=== PATIENT | female | born 1990 ===

== ENCOUNTER 2016-08-16 03:25 | Emergency (ER) | payer OTHER ==
[2016-08-16 03:29] VITALS: RESP 18; TEMP 98.1; O2SAT 98
[2016-08-16 03:30] VITALS: BMI 27.4
[2016-08-16] MEDS ORDERED: Sodium Chloride 0.9% 1,000 ML IV STA (03:44)
--- NOTE | 2016-08-16 03:46 | ED PDOC ---
Arrival/HPI - General Chief Complaint: Back Pain Time Seen by Provider: 08/16/16 03:43 Historian: Patient - History of Present Illness Narrative History of Present Illness (Text): 08/16/16 03:44 Lo Kraus is a 26 year old female who presents to the Emergency department complaining of left flank pain tonight. Patient states pain radiated to her lower abdomen and notes associated nausea. Patient denies any fever, chills, chest pain, shortness of breath,vomiting, diarrhea, urinary symptoms, neck pain, headache, dizziness, or any other complaints. Time/Duration: Other (tonight) Symptom Course: Unchanged Activities at Onset: Rest, Light Context: Home Past Medical History - Provider Review Nursing Documentation Reviewed: Yes - Past History Past History: Non-Contributing - Infectious Disease Hx of Infectious Diseases: None - Tetanus Immunization Tetanus Immunization: Unknown - Cardiac Hx Cardiac Disorders: No - Pulmonary Hx Respiratory Disorders: No - Neurological Hx Neurological Disorder: No - HEENT Hx HEENT Disorder: No - Renal Hx Renal Disorder: No - Endocrine/Metabolic Hx Endocrine Disorders: No - Hematological/Oncological Hx Blood Disorders: Yes Hx Cancer: Yes (non hodgkin's lymphoma) - Integumentary Hx Dermatological Disorder: No - Musculoskeletal/Rheumatological Hx Musculoskeletal Disorders: No - Gastrointestinal Hx Gastrointestinal Disorders: No - Genitourinary/Gynecological Hx Genitourinary Disorders: Yes Other/Comment: lymphoma 2013, hx chemo - Psychiatric Hx Psychophysiologic Disorder: No Hx Anxiety: No Hx Bipolar Disorder: No Hx Depression: No Hx Emotional Abuse: No Hx Hallucinations: No Hx Panic Disorder: No Hx Post Traumatic Stress Disorder: No Hx Psychosis: No Hx Physical Abuse: No Hx Schizophrenia: No Hx Sexual Abuse: No Hx Substance Use: No - Surgical History Hx Section: Yes (x2) Other/Comment: lymphoma left neck - Anesthesia Hx Anesthesia: Yes Hx Anesthesia Reactions: No Hx Malignant Hyperthermia: No - Suicidal Assessment Feels Threatened In Home Enviroment: No Family/Social History - Physician Review Nursing Documentation Reviewed: Yes Family/Social History: No Known Family HX Smoking Status: Never Smoked Hx Alcohol Use: No Hx Substance Use: No Allergies/Home Meds Allergies/Adverse Reactions: Allergies No Known Allergies Allergy (Verified 08/16/16 03:33) Review of Systems - Physician Review All systems were reviewed & negative as marked: Yes - Review of Systems Constitutional: Normal. absent: Fevers Eyes: Normal ENT: Normal Respiratory: Normal. absent: SOB, Cough Cardiovascular: Normal. absent: Chest Pain Gastrointestinal: Abdominal Pain, Nausea. absent: Diarrhea, Vomiting Genitourinary Female: Normal Musculoskeletal: Back Pain (+left flank pain). absent: Neck Pain Skin: Normal. absent: Rash Neurological: Normal. absent: Headache, Dizziness Endocrine: Normal Hemo/Lymphatic: Normal Psychiatric: Normal Physical Exam Vital Signs Reviewed: Yes Vital Signs Temp Pulse Resp BP Pulse Ox 08/16/16 06:36 71 18 116/69 98 08/16/16 03:28 98.1 F 78 18 127/88 98 Temperature: Afebrile Blood Pressure: Normal Pulse: Regular Respiratory Rate: Normal Appearance: Positive for: Well-Appearing, Non-Toxic, Comfortable Pain Distress: None Mental Status: Positive for: Alert and Oriented X 3 - Systems Exam Head: Present: Atraumatic, Normocephalic Pupils: Present: PERRL Extroacular Muscles: Present: EOMI Conjunctiva: Present: Normal Mouth: Present: Moist Mucous Membranes Neck: Present: Normal Range of Motion Respiratory/Chest: Present: Clear to Auscultation, Good Air Exchange. No: Respiratory Distress, Accessory Muscle Use Cardiovascular: Present: Regular Rate and Rhythm, Normal S1, S2. No: Murmurs Abdomen: Present: Normal Bowel Sounds. No: Tenderness, Distention, Peritoneal Signs Back: Present: CVA Tenderness (Left CVA tenderness) Upper Extremity: Present: Normal Inspection. No: Cyanosis, Edema Lower Extremity: Present: Normal Inspection. No: Edema Neurological: Present: GCS=15, CN II-XII Intact, Speech Normal Skin: Present: Warm, Dry, Normal Color. No: Rashes Psychiatric: Present: Alert, Oriented x 3, Normal Insight, Normal Concentration Medical Decision Making ED Course and Treatment: 08/16/16 03:44 Impression: 26 year old female complaining of left flank pain tonight. Plan: -- CT Abdomen and Pelvis w/o contrast -- Labs -- Urinalysis -- IV fluids -- Zofran -- Toradol -- Reassess and disposition Progress Notes: 08/16/16 05:07 Reviewed radiology, CT Abdomen and Pelvis w/o contrast shows: 1. No CT evidence of urolithiasis. 2. Mild cystitis vs underdistention. Correlate with urinalysis. 3. Probable hydrosalpinx. Consider ultrasound. 4. Incidental/non-acute findings are described above. id-filled tubular structures within adnexal regions, present on previous examination. Small ovarian follicles. Re-evaluation Time: 06:44 Reassessment Condition: Re-examined, Improved - Lab Interpretations Lab Results: 08/16/16 03:40 08/16/16 03:40 Lab Results 08/16/16 03:40: Sodium 137, Potassium 4.2, Chloride 101, Carbon Dioxide 24, Anion Gap 16, BUN 9, Creatinine 0.5, Est GFR ( Amer) > 60, Est GFR (Non- Af Amer) > 60, Random Glucose 124 H, Calcium 9.2, Total Bilirubin 0.7, AST 27, ALT 52, Alkaline Phosphatase 102, Total Protein 8.0, Albumin 4.5, Globulin 3.6, Albumin/Globulin Ratio 1.3 08/16/16 03:40: Urine Color Red, Urine Appearance Cloudy, Urine pH 5.0, Ur Specific [place] 1.020, Urine Protein >=300 H, Urine Glucose (UA) 250 H, Urine Ketones Trace H, Urine Blood Large H, Urine Nitrate Positive H, Urine Bilirubin Small H, Urine Urobilinogen >=8.0, Ur Leukocyte Esterase Moderate H, Urine RBC 5 - 10, Urine WBC 10 - 15, Ur Epithelial Cells 1 - 3, Urine Bacteria Small 08/16/16 03:40: WBC 9.1, RBC 4.64, Hgb 12.8, Hct 37.3, MCV 80.4, MCH 27.6, MCHC 34.3, RDW 13.3, Plt Count 326, MPV 10.4, Gran % 61.5, Lymph % (Auto) 29.0, [place] % (Auto) 6.8 H, Eos % (Auto) 2.5, Baso % (Auto) 0.2, Gran # 5.58, Lymph # 2.6, [place] # 0.6, Eos # 0.2, Baso # 0.02 I have reviewed the lab results: Yes - RAD Interpretation Narrative RAD Interpretations (Text): CT Abdomen and Pelvis w/o contrast shows: Lower thorax: No acute findings. ABDOMEN: Liver: Unremarkable. Gallbladder and bile ducts: No calcified stones. No ductal dilation. Pancreas: Unremarkable. No ductal dilation. Spleen: No splenomegaly. Adrenals: No mass. Kidneys and ureters: No renal calculi. Stomach and bowel: No definite mural thickening. No obstruction. Appendix: Normal caliber. No inflammation. PELVIS: Bladder: Borderline bladder wall thickening, 4-5 mm. Incomplete distention, limiting evaluation. No stones. Reproductive: Flu ABDOMEN and PELVIS: Intraperitoneal space: No significant fluid collection. No free air. Bones/joints: No acute fracture. Soft tissues: Unremarkable. Vasculature: Unremarkable. No abdominal aortic aneurysm. Lymph nodes: Few subcentimeter short axis mesenteric lymph nodes, nonspecific. IMPRESSION: 1. No CT evidence of urolithiasis. 2. Mild cystitis vs underdistention. Correlate with urinalysis. 3. Probable hydrosalpinx. Consider ultrasound. 4. Incidental/non-acute findings are described above. id-filled tubular structures within adnexal regions, present on previous examination. Small ovarian follicles. Radiology Orders: 08/16/16 03:44 ABD & PELVIS W/O PO OR IV CONT [CT] Stat Diver Helper: Radiologist - Medication Orders Current Medication Orders: Sodium Chloride (Sodium Chloride 0.9%) 1,000 mls @ 100 mls/hr IV .Q10H STA Stop: 08/16/16 13:43 Last Admin: 08/16/16 03:55 Dose: 100 mls/hr Discontinued Medications Ceftriaxone Sodium (Rocephin 1 Gram Ivpb) 1 gm in 100 mls @ 200 mls/hr IVPB STAT STA PRN Reason: Protocol Stop: 08/16/16 05:20 Last Admin: 08/16/16 05:07 Dose: 200 mls/hr Ketorolac Tromethamine (Toradol) 30 mg IVP STAT STA Stop: 08/16/16 03:45 Last Admin: 08/16/16 03:56 Dose: 30 mg Ketorolac Tromethamine (Toradol) 30 mg IVP ONCE ONE Stop: 08/16/16 04:51 Last Admin: 08/16/16 05:07 Dose: 30 mg Ondansetron HCl (Zofran Inj) 4 mg IVP STAT STA Stop: 08/16/16 03:45 Last Admin: 08/16/16 03:58 Dose: 4 mg - Scribe Statement The provider has reviewed the documentation as recorded by the Becky Starr All medical record entries made by the Harjitibburt were at my direction and personally dictated by me. I have reviewed the chart and agree that the record accurately reflects my personal performance of the history, physical exam, medical decision making, and the department course for this patient. I have also personally directed, reviewed, and agree with the discharge instructions and disposition. Disposition/Present on Arrival - Present on Arrival Any Indicators Present on Arrival: No History of DVT/PE: No History of Uncontrolled Diabetes: No Urinary Catheter: No History of Decub. Ulcer: No History Surgical Site Infection Following: None - Disposition Have Diagnosis and Disposition been Completed?: Yes Diagnosis: UTI (urinary tract infection) Disposition: HOME/ ROUTINE Disposition Time: 06:45 Condition: GOOD Discharge Instructions (ExitCare): Urinary Tract Infection in Women (ED) Prescriptions: Cephalexin [Keflex] 500 mg PO BID #14 capsule Phenazopyridine [Pyridium] 200 mg PO PC #6 tab Tramadol HCl [Ultram] 50 mg PO QID #6 tab
[2016-08-16 03:53] LABS: ADD MANUAL DIFF? NO
[2016-08-16 04:13] LABS: URINE BILIRUBIN SMALL (NEGATIVE); URINE BLOOD LARGE (NEGATIVE); URINE GLUCOSE (UA) 250 mg/dL (NEGATIVE); URINE KETONE TRACE mg/dL (NEGATIVE); URINE LEUKOCYTE ESTERASE MODERATE Leu/uL (NEGATIVE); URINE PROTEIN >=300 mg/dL (<30 mg/dL); URINE UROBILINOGEN >=8.0 E.U./dL (<1 E.U./dL)
[2016-08-16 04:19] LABS: URINE APPEARANCE CLOUDY (CLEAR); URINE COLOR RED (YELLOW)
[2016-08-16 04:21] LABS: BASO # 0.02 K/mm3 (0.0-2.0); BASO % 0.2 % (0.0-3.0); EOS # 0.2 (0.0-0.7); EOS % 2.5 % (1.5-5.0); GRAN # 5.58 (1.4-6.5); GRAN % 61.5 % (50.0-68.0); HEMATOCRIT 37.3 % (36.0-48.0); LYMPH # 2.6 (1.2-3.4); MEAN CELL VOLUME 80.4 fL (80.0-105.0); MEAN CORPUSCULAR HEMOGLOBIN 27.6 pg (25.0-35.0); MEAN CORPUSCULAR HGB CONC 34.3 g/dl (31.0-37.0); MEAN PLATELET VOLUME 10.4 fl (7.0-11.0); MONO # 0.6 (0.1-0.6); MONO % 6.8 % (1.0-6.0); PLATELET COUNT 326 10^3/uL (120.0-450.0); RED CELL DISTRIBUTION WIDTH 13.3 % (11.5-14.5); URINE BACTERIA SMALL (NEG); WHITE BLOOD COUNT 9.1 10^3/ul (4.5-11.0)
[2016-08-16 04:23] LABS: ALB/GLOB RATIO 1.3 (1.1-1.8); ALKALINE PHOSPHATASE 102 U/L (38-133); ALT/SGPT 52 U/L (7-56); AST/SGOT 27 U/L (15-39); BILIRUBIN,TOTAL 0.7 mg/dL (0.2-1.3); BLOOD UREA NITROGEN 9 mg/dL (7-21); CALCIUM 9.2 mg/dL (8.4-10.5); CARBON DIOXIDE 24 mmol/L (21-33); CHLORIDE 101 mmol/L (98-107); GFR AFRICAN-AMERICAN > 60; GLUCOSE,RANDOM 124 mg/dL (70-110); POTASSIUM 4.2 mmol/L (3.6-5.0); SODIUM 137 mmol/L (132-148)
--- NOTE | 2016-08-16 04:44 | CT ---
EXAM: CT Abdomen and Pelvis Without Intravenous Contrast CLINICAL HISTORY: 26 years old, female; Pain; Abdominal pain; Flank; Left; Additional info: Left flank pain TECHNIQUE: Axial computed tomography images of the abdomen and pelvis without intravenous contrast. This CT exam was performed using one or more of the following dose reduction techniques: automated exposure control, adjustment of the mA and/or kV according to patient size, and/or use of iterative reconstruction technique. Coronal and sagittal reformatted images were created and reviewed. COMPARISON: CT - ABD PELVIS IV CONTRAST ONLY 04/08/2016 7:10:04 PM FINDINGS: Lower thorax: No acute findings. ABDOMEN: Liver: Unremarkable. Gallbladder and bile ducts: No calcified stones. No ductal dilation. Pancreas: Unremarkable. No ductal dilation. Spleen: No splenomegaly. Adrenals: No mass. Kidneys and ureters: No renal calculi. Stomach and bowel: No definite mural thickening. No obstruction. Appendix: Normal caliber. No inflammation. PELVIS: Bladder: Borderline bladder wall thickening, 4-5 mm. Incomplete distention, limiting evaluation. No stones. Reproductive: Fluid-filled tubular structures within adnexal regions, present on previous examination. Small ovarian follicles. ABDOMEN and PELVIS: Intraperitoneal space: No significant fluid collection. No free air. Bones/joints: No acute fracture. Soft tissues: Unremarkable. Vasculature: Unremarkable. No abdominal aortic aneurysm. Lymph nodes: Few subcentimeter short axis mesenteric lymph nodes, nonspecific. IMPRESSION: 1. No CT evidence of urolithiasis. 2. Mild cystitis vs underdistention. Correlate with urinalysis. 3. Probable hydrosalpinx. Consider ultrasound. 4. Incidental/non-acute findings are described above.
[2016-08-16] MEDS ORDERED: cefTRIAXone 1 gm 1 GM/100 ML BAG IVPB STA (04:51)
[2016-08-16 06:38] VITALS: BP 116/69; PULSE 71
== END 2016-08-16 06:52 | disposition home or self-care (01) ==
LOC: ED 03:25
DX: N39.0 Urinary tract infection, site not specified (principal)
CPT/HCPCS: 74176; 80053; 81001; 85025; 87086; 96365; 96375; 99284; J0696; J1885; J2405; J7040

== ENCOUNTER 2016-09-27 15:57 | Observation (INO) | payer OTHER ==
--- NOTE | 2016-09-27 16:10 | ED PDOC ---
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 Productive coughing with phelgm inside her chest, admits difficulty breathing when coughing excessively, admits voice is gone, no night sweat, no dizziness, no change in vision, no headache, no palpitation, no rash, no other medical or psychological complaints. (Ward Garza) Past Medical History - Provider Review Nursing Documentation Reviewed: Yes - Past History Past History: Non-Contributing - Infectious Disease Hx of Infectious Diseases: None - Tetanus Immunization Tetanus Immunization: Unknown - Cardiac Hx Cardiac Disorders: No - Pulmonary Hx Respiratory Disorders: No - Neurological Hx Neurological Disorder: No - HEENT Hx HEENT Disorder: No - Renal Hx Renal Disorder: No - Endocrine/Metabolic Hx Endocrine Disorders: No - Hematological/Oncological Hx Blood Disorders: Yes Hx Cancer: Yes (non hodgkin's lymphoma) - Integumentary Hx Dermatological Disorder: No - Musculoskeletal/Rheumatological Hx Musculoskeletal Disorders: No - Gastrointestinal Hx Gastrointestinal Disorders: No - Genitourinary/Gynecological Hx Genitourinary Disorders: Yes Other/Comment: lymphoma 2013, hx chemo - Psychiatric Hx Psychophysiologic Disorder: No Hx Anxiety: No Hx Bipolar Disorder: No Hx Depression: No Hx Emotional Abuse: No Hx Hallucinations: No Hx Panic Disorder: No Hx Post Traumatic Stress Disorder: No Hx Psychosis: No Hx Physical Abuse: No Hx Schizophrenia: No Hx Sexual Abuse: No Hx Substance Use: No - Surgical History Hx Section: Yes (x2) Other/Comment: lymphoma left neck - Anesthesia Hx Anesthesia: Yes Hx Anesthesia Reactions: No Hx Malignant Hyperthermia: No - Suicidal Assessment Feels Threatened In Home Enviroment: No Family/Social History - Physician Review Nursing Documentation Reviewed: Yes Family/Social History: Unknown Family HX Smoking Status: Never Smoked Hx Alcohol Use: No Hx Substance Use: No Allergies/Home Meds Allergies/Adverse Reactions: Allergies No Known Allergies Allergy (Verified 09/27/16 16:07) Home Medications: Home Meds Medication Instructions Recorded Confirmed No Known Home Med 09/27/16 09/27/16 Review of Systems - Review of Systems Constitutional: absent: Fatigue, Fevers Eyes: absent: Vision Changes ENT: absent: Hearing Changes Respiratory: SOB, Cough, Sputum, Wheezing Cardiovascular: absent: Chest Pain Gastrointestinal: absent: Abdominal Pain, Diarrhea, Nausea, Vomiting Musculoskeletal: absent: Arthralgias, Back Pain, Myalgias Skin: absent: Rash, Pruritis, Skin Lesions, Laceration, Abscess, Ulcer Neurological: absent: Headache, Dizziness, Focal Weakness Psychiatric: absent: Anxiety, Depression, Suicidal Ideation Physical Exam Vital Signs Reviewed: Yes Temperature: Afebrile Blood Pressure: Normal Pulse: Tachycardic Respiratory Rate: Tachypneic Appearance: Positive for: Well-Appearing, Non-Toxic, Uncomfortable Pain Distress: None Mental Status: Positive for: Alert and Oriented X 3 - Systems Exam Head: Present: Atraumatic, Normocephalic Pupils: Present: PERRL Extroacular Muscles: Present: EOMI Conjunctiva: Present: Normal Mouth: Present: Moist Mucous Membranes Pharnyx: Present: Other (+hoarse voice). No: ERYTHEMA, EXUDATE, TONSILS ENLARGED, Peritonsilar Swelling, Uvular Deviation, Strider, Soft Palate/Uvular Edema Nose (Internal): Present: No Active Bleeding. No: Rhinorrhea, Septal Hematoma, Epistaxis Neck: Present: Normal Range of Motion, Trachea Midline. No: MIDLINE TENDERNESS , Paraspinal Tenderness, Lymphadenopathy Respiratory/Chest: Present: Wheezes, Decreased Breath Sounds, Rales, Rhonchi, Tachypneic, Other (bilateral rhonchis with decrease aeration and mild wheezing on the rt. lower lobe region. ). No: Respiratory Distress, Accessory Muscle Use , Retracting, Tender to Palpation Cardiovascular: Present: Regular Rate and Rhythm, Normal S1, S2, Other (No pedal edema). No: Murmurs Abdomen: Present: Normal Bowel Sounds. No: Tenderness, Distention, Peritoneal Signs, Rebound Back: Present: Normal Inspection. No: CVA Tenderness Upper Extremity: Present: Normal Inspection. No: Cyanosis, Edema Lower Extremity: Present: Normal Inspection. No: Edema Neurological: Present: GCS=15, Motor Func Grossly Intact, Memory Normal Skin: Present: Warm, Dry, Normal Color. No: Rashes Psychiatric: Present: Alert, Oriented x 3, Normal Insight, Normal Concentration Vital Signs Temp Pulse Resp BP Pulse Ox 09/28/16 00:01 88 18 132/82 99 09/27/16 21:27 95 H 20 117/65 100 09/27/16 16:03 98.2 F 95 H 18 142/84 100 09/27/16 15:57 98.2 F 102 H 20 142/84 100 Medical Decision Making - Lab Interpretations I have reviewed the lab results: Yes Interpretation: Abnormal lab values (d-dimer 0.72) - RAD Interpretation Ela Teacher: Radiologist - EKG Interpretation Interpreted by ED Physician: Yes Type: 12 lead EKG ED Course and Treatment: I was available for consultation during PA evaluation. The chart reviewed by me , and I agree with disposition. The documented history was done by the physician call center recruiter. The documented physical exam was done by the physician call center recruiter. The documented procedures were done by the physician call center recruiter. (Malik Crowe) 09/27/16 16:11 -labs/dimer/bnp -hest x-ray -IV solumedrol, duoneb x 2, toradol -playground monitor -Observe and reassesss 09/27/16 17:59 -chest x-ray change to CTA due to the elevation of d-dimer 0.72 with tachycardia 09/27/16 21:25 -EKG: NSR @ 83 BPM, no ST elevation or depression, T wave in version on lead III. -CTA show no obvious PE with no consolidation or dissection, limited evaluation due to the motion. -Labs show no acute findings except d-dimer 0.72 with negative BNP -Lung still has decrease aeration with limited improvement, still tachycardic around 90-102, will admit the patient for telemetry for albuterol treatment prn 09/27/16 22:12 -I discussed with Dr. Hawk and medical office technology instructor Dr. Jose R Greer notifed, discussed about the labs/radiology result, agreed on the observation plan. -Dr. crowe will put in the order. (Ward Garza) - Lab Interpretations Lab Results: 09/27/16 17:22 09/27/16 17:22 Lab Results 09/27/16 17:22: Sodium 138, Potassium 3.8, Chloride 105, Carbon Dioxide 24, Anion Gap 13, BUN 10, Creatinine 0.5, Est GFR ( Amer) > 60, Est GFR (Non- Af Amer) > 60, Random Glucose 97, Calcium 9.2, Total Bilirubin 0.4, AST 31, ALT 51, Alkaline Phosphatase 106, NT-Pro-B Natriuret Pep 18.9, Total Protein 7.0, Albumin 4.1, Globulin 2.9, Albumin/Globulin Ratio 1.4 09/27/16 17:22: D-Dimer, Quantitative 0.72 H 09/27/16 17:22: WBC 6.2 D, RBC 4.30, Hgb 11.9 L, Hct 34.8 L, MCV 80.9, MCH 27.7 , MCHC 34.2, RDW 13.2, Plt Count 258, MPV 9.9, Gran % 54.2, Lymph % (Auto) 33.5 , [place] % (Auto) 7.6 H, Eos % (Auto) 4.4, Baso % (Auto) 0.3, Gran # 3.34, Lymph # 2.1, [place] # 0.5, Eos # 0.3, Baso # 0.02 - RAD Interpretation Radiology Orders: 09/27/16 17:58 ANGIO CHEST PE PROTOCOL [CT] Stat 09/27/16 17:58 ANGIO CHEST PE PROTOCOL [CT] Stat CT Scan ANGIO CHEST PE PROTOCOL Exam Date: 09/27/16 This imaging exam was performed at [facility] EXAM: CT Angiography Chest With Intravenous Contrast CLINICAL HISTORY: 26 years old, female; Signs and symptoms; Shortness of breath; Additional info: Shortness of breath/wheezing, dimer mildly elevate TECHNIQUE: Axial computed tomographic angiography images of the chest with intravenous contrast using pulmonary embolism protocol. This CT exam was performed using one or more of the following dose reduction techniques: automated exposure control, adjustment of the mA and/or kV according to patient size, and/or use of iterative reconstruction technique. MIP reconstructed images were created and reviewed. Coronal and sagittal reformatted images were created and reviewed. CONTRAST: 100 mL of omni administered intravenously. EXAM DATE/TIME: 09/27/2016 5:58 PM COMPARISON: CR - CHEST PORTABLE 03/04/2015 12:22:27 PM FINDINGS: Artifacts: Motion artifact degrades image quality. Heart, aorta and Pulmonary arteries: Heart size is normal. There is no pericardial effusion.There is no aneurysm or dissection. There are no central pulmonary emboli. Motion artifact limits evaluation of peripheral vessels. Lungs and pleural spaces: Trachea and main bronchi are patent. There is a 6.3 mm pleural-based nodular opacity in the right middle lobe. There is no focal consolidation. There is minimal atelectasis/scarring at both lung bases. There are no effusions. Mediastinum: Esophagus is unremarkable. There are no pathologically enlarged mediastinal or hilar nodes. Thyroid: Thyroid is only partially imaged. Bones/joints: There are no acute osseous abnormalities Soft tissues: unremarkable Upper abdomen: There is an accessory spleen in the left upper quadrant. IMPRESSION: Limited by patient motion, no aneurysm, dissection or central pulmonary embolus, no focal pneumonia Dictated By: Amber Garcia MD, MD Dictated Date/Time: 09/27/162108 Signed By: Amber Garcia MD Date Signed: 2108 Transcribed By: TERI Transcribe Date/Time : 09/27/162108 (Ward Garza) - EKG Interpretation EKG Interpretation (Text): 09/27/16 17:14 NSR @ 83 BPM, no ST elevation or depression, T wave in version on lead III. ( Ward Garza) - Medication Orders Current Medication Orders: Acetaminophen (Tylenol 325mg Tab) 650 mg PO Q6H PRN PRN Reason: Fever >100.4 F Albuterol Sulfate (Albuterol 0.083% Inhal Zulema (2.5 Mg/3 Ml) Ud) 2.5 mg IH Q2H PRN PRN Reason: Shortness of Breath Aspirin (Ecotrin) 81 mg PO DAILY [facility] Last Admin: 09/28/16 09:59 Dose: 81 mg Atorvastatin Calcium (Lipitor) 40 mg PO DIN [facility] Last Admin: 09/28/16 04:13 Dose: 40 mg Benzonatate (Tessalon Perles) 100 mg PO TID [facility] Enoxaparin Sodium (Lovenox) 40 mg SC DAILY [facility] PRN Reason: Protocol Last Admin: 09/28/16 09:59 Dose: 40 mg Famotidine (Pepcid) 20 mg IVP Q12 [facility] Last Admin: 09/28/16 09:59 Dose: 20 mg Guaifenesin/Codeine Phosphate (Robitussin W/Codeine) 5 ml PO Q4H PRN PRN Reason: Cough and congestion Dextrose/Sodium Chloride (Dextrose 5%/0.45% Ns 1000 Ml) 1,000 mls @ 80 mls/hr IV .[id number] [facility] Last Admin: 09/28/16 11:10 Dose: 80 mls/hr Ceftriaxone Sodium (Rocephin 1 Gram Ivpb) 1 gm in 100 mls @ 100 mls/hr IVPB DAILY [facility] PRN Reason: Protocol Last Admin: 09/28/16 11:10 Dose: 100 mls/hr Ibuprofen (Motrin Tab) 600 mg PO Q6H PRN PRN Reason: Pain, Mild (1-3) Methylprednisolone (Solu-Medrol) 40 mg IVP Q12H [facility] Last Admin: 09/28/16 02:19 Dose: 40 mg Ondansetron HCl (Zofran Inj) 4 mg IVP Q6H PRN PRN Reason: Nausea/Vomiting Discontinued Medications Albuterol/Ipratropium (Duoneb 3 Mg/0.5 Mg (3 Ml) Ud) 6 ml IH STAT STA Stop: 09/27/16 16:13 Last Admin: 09/27/16 17:11 Dose: 6 ml Albuterol/Ipratropium (Duoneb 3 Mg/0.5 Mg (3 Ml) Ud) 3 ml IH STAT STA Stop: 09/27/16 21:25 Last Admin: 09/27/16 21:37 Dose: 3 ml Amoxicillin/Clavulanate Potassium (Augmentin 875 Mg-125 Mg Tab) 1 tab PO Q12 [facility] PRN Reason: Protocol Stop: 10/04/16 02:02 Last Admin: 09/28/16 09:59 Dose: 1 tab Magnesium Sulfate 2 gm/ Sodium (Chloride) 104 mls @ 102 mls/hr IVPB ONCE ONE Stop: 09/28/16 01:12 Last Admin: 09/28/16 02:26 Dose: 102 mls/hr Iohexol (Omnipaque 350 100 Ml) Confirm Administered Dose 350 mg .ROUTE .STK-MED ONE Stop: 09/27/16 18:14 Ketorolac Tromethamine (Toradol) 30 mg IVP STAT STA Stop: 09/27/16 16:13 Last Admin: 09/27/16 17:11 Dose: 30 mg Re-Assess: JULIETTE Pain Assessment Document 09/27/16 18:11 OCS (Rec: 09/27/16 19:00 [facility] [id number]) Pain Reassessment Is this a pain reassessment? Yes Sleep Is patient sleeping during reassessment? Yes Methylprednisolone (Solu-Medrol) 125 mg IV ONCE STA Stop: 09/27/16 17:04 Last Admin: 09/27/16 17:12 Dose: 125 mg - PA / [employer]M MANAGER / Resident Statement MD/DO has reviewed & agrees with the documentation as recorded. Disposition/Present on Arrival - Present on Arrival Any Indicators Present on Arrival: No History of DVT/PE: No History of Uncontrolled Diabetes: No Urinary Catheter: No History of Decub. Ulcer: No History Surgical Site Infection Following: None - Disposition Have Diagnosis and Disposition been Completed?: Yes Disposition Time: 16:15 Patient Plan: Observation, Telemetry - Disposition Diagnosis: Shortness of breath Disposition: HOSPITALIZED Patient Problems: Current Active Problems Problem Status Onset Shortness of breath Acute Condition: STABLE
[2016-09-27] MEDS ORDERED: METHYLPREDNISOLONE IV STA (16:12)
[2016-09-27] MEDS ORDERED: Albuterol-Ipratrop 3 mg / 0.5 (3 ml) UD IH STA ×2 (16:12→21:24)
[2016-09-27 17:36] LABS: ADD MANUAL DIFF? NO
[2016-09-27 17:39] LABS: BASO # 0.02 K/mm3 (0.0-2.0); BASO % 0.3 % (0.0-3.0); EOS # 0.3 (0.0-0.7); EOS % 4.4 % (1.5-5.0); GRAN # 3.34 (1.4-6.5); GRAN % 54.2 % (50.0-68.0); HEMATOCRIT 34.8 % (36.0-48.0); LYMPH # 2.1 (1.2-3.4); LYMPH % 33.5 % (22.0-35.0); MEAN CELL VOLUME 80.9 fL (80.0-105.0); MEAN CORPUSCULAR HEMOGLOBIN 27.7 pg (25.0-35.0); MEAN CORPUSCULAR HGB CONC 34.2 g/dl (31.0-37.0); MEAN PLATELET VOLUME 9.9 fl (7.0-11.0); MONO # 0.5 (0.1-0.6); MONO % 7.6 % (1.0-6.0); PLATELET COUNT 258 10^3/uL (120.0-450.0); RED CELL DISTRIBUTION WIDTH 13.2 % (11.5-14.5); WHITE BLOOD COUNT 6.2 10^3/ul (4.5-11.0)
[2016-09-27 17:50] LABS: ALB/GLOB RATIO 1.4 (1.1-1.8); ALKALINE PHOSPHATASE 106 U/L (38-133); ALT/SGPT 51 U/L (7-56); AST/SGOT 31 U/L (15-39); BILIRUBIN,TOTAL 0.4 mg/dL (0.2-1.3); BLOOD UREA NITROGEN 10 mg/dL (7-21); CALCIUM 9.2 mg/dL (8.4-10.5); CARBON DIOXIDE 24 mmol/L (21-33); CHLORIDE 105 mmol/L (98-107); GFR AFRICAN-AMERICAN > 60; GLUCOSE,RANDOM 97 mg/dL (70-110); POTASSIUM 3.8 mmol/L (3.6-5.0); SODIUM 138 mmol/L (132-148)
[2016-09-27] MEDS ORDERED: Iohexol 350 MG/100 ML VIAL ONE (18:13)
--- NOTE | 2016-09-27 21:09 | CT ---
EXAM: CT Angiography Chest With Intravenous Contrast CLINICAL HISTORY: 26 years old, female; Signs and symptoms; Shortness of breath; Additional info: Shortness of breath/wheezing, dimer mildly elevate TECHNIQUE: Axial computed tomographic angiography images of the chest with intravenous contrast using pulmonary embolism protocol. This CT exam was performed using one or more of the following dose reduction techniques: automated exposure control, adjustment of the mA and/or kV according to patient size, and/or use of iterative reconstruction technique. MIP reconstructed images were created and reviewed. Coronal and sagittal reformatted images were created and reviewed. CONTRAST: 100 mL of omni administered intravenously. EXAM DATE/TIME: 09/27/2016 5:58 PM COMPARISON: CR - CHEST PORTABLE 03/04/2015 12:22:27 PM FINDINGS: Artifacts: Motion artifact degrades image quality. Heart, aorta and Pulmonary arteries: Heart size is normal. There is no pericardial effusion.There is no aneurysm or dissection. There are no central pulmonary emboli. Motion artifact limits evaluation of peripheral vessels. Lungs and pleural spaces: Trachea and main bronchi are patent. There is a 6.3 mm pleural-based nodular opacity in the right middle lobe. There is no focal consolidation. There is minimal atelectasis/scarring at both lung bases. There are no effusions. Mediastinum: Esophagus is unremarkable. There are no pathologically enlarged mediastinal or hilar nodes. Thyroid: Thyroid is only partially imaged. Bones/joints: There are no acute osseous abnormalities Soft tissues: unremarkable Upper abdomen: There is an accessory spleen in the left upper quadrant. IMPRESSION: Limited by patient motion, no aneurysm, dissection or central pulmonary embolus, no focal pneumonia
--- NOTE | 2016-09-28 00:09 | CP.PCM.HP ---
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 She states she started to lose her voice earlier today too, and has been having facial pain and ear pain and feeling of nose stuffiness. She was previously supposed to have her tonsils taken out in [place] at [facility] but due to an immigration issue, she has lost her passport and is no longer eligible for the treatment there. She also states that she had a mini-stroke in the past, and should be on aspirin and a statin but has not been taking them. She also states she vomited 2 times in the ED today. Last echo was 2 years ago and was normal that we have on record. She denies all other symptoms; no fevers/chills, CHOW, CP, current SOB , abdominal pain, N/V/D, dysuria/freq/urg, or lower extremity pain/swelling currently. 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 PMhx: NHL s/p CHOP in remission, [place] Palsy, Chronic Tonsillitis Meds: Currently none? 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 Past smoker at the age of 14 but only for one year. Present on Admission - Present on Admission Any Indicators Present on Admission: No History of DVT/PE: No History of Uncontrolled Diabetes: No Urinary Catheter: No Decubitus Ulcer Present: No Past Patient History - Infectious Disease Hx of Infectious Diseases: None - Tetanus Immunizations Tetanus Immunization: Unknown - Past Social History Smoking Status: Never Smoked - CARDIAC Hx Cardiac Disorders: No - PULMONARY Hx Respiratory Disorders: No - NEUROLOGICAL Hx Neurological Disorder: No - HEENT Hx HEENT Problems: No - RENAL Hx Chronic Kidney Disease: No - ENDOCRINE/METABOLIC Hx Endocrine Disorders: No - HEMATOLOGICAL/ONCOLOGICAL Hx Blood Disorders: Yes Hx Cancer: Yes (non hodgkin's lymphoma) - INTEGUMENTARY Hx Dermatological Problems: No - MUSCULOSKELETAL/RHEUMATOLOGICAL Hx Musculoskeletal Disorders: No - GASTROINTESTINAL Hx Gastrointestinal Disorders: No - GENITOURINARY/GYNECOLOGICAL Hx Genitourinary Disorders: Yes Other/Comment: lymphoma 2013, hx chemo - PSYCHIATRIC Hx Psychophysiologic Disorder: No Hx Anxiety: No Hx Bipolar Disorder: No Hx Depression: No Hx Emotional Abuse: No Hx Hallucinations: No Hx Panic Symptoms: No Hx Post Traumatic Stress Disorder: No Hx Psychosis: No Hx Physical Abuse: No Hx Schizophrenia: No Hx Sexual Abuse: No Hx Substance Use: No - SURGICAL HISTORY Hx Section: Yes (x2) Other/Comment: lymphoma left neck - ANESTHESIA Hx Anesthesia: Yes Hx Anesthesia Reactions: No Hx Malignant Hyperthermia: No Meds Allergies/Adverse Reactions: Allergies Allergy/AdvReac Type Severity Reaction Status Date / Time No Known Allergies Allergy Verified 09/27/16 16:07 Results - Vital Signs Recent Vital Signs: Last Vital Signs Temp 98.2 F 09/27/16 16:03 Pulse 88 09/28/16 00:01 Resp 18 09/28/16 00:01 BP 132/82 09/28/16 00:01 Pulse Ox 99 09/28/16 00:01 - Labs Result Diagrams: 09/27/16 17:22 09/27/16 17:22 Assessment & Plan - Assessment and Plan (Free Text) Assessment: 26yo F admitted for SOB/Chest Pain and Sinusitis/Laryngitis SOB/Chest pain -has since resolved -saturating 100% on room air -CTA negative for PE, PNA, or dissection -PRN albuterol -Solumedrol 40mg Q12H -ordered echo as patient has history of CHOP therapy for NHL; has been complaining of SOB and progressive weakness with activity -f/u BNP Sinusitis/Laryngitis -Amoxicillin/Clav for 7 days BID -Solumedrol 40mg Q12H; can most likely be changed to PO prednisone Previous TIA/Stroke -Aspirin 81mg PO daily -Lipitor 40mg HS Proph Pepcid Lovenox OOB encouraged Incentive Spirometer Case discussed with Dr. Carine Hobbs PGY1 Night Float Decision To Admit - Pt Status Changed To: Hospital Disposition Of: Observation - . Bed Request Type: Remote Telemetry Admitting Physician: Will Hawk MD
[2016-09-28] MEDS ORDERED: Levalbuterol 1.25 MG/3 ML Inhal Soln UD IH PRN (00:10)
[2016-09-28] MEDS ORDERED: Magnesium Sulfate 2 GM in Sodium Chloride 0.9% 100 ML IVPB ONE (00:11)
[2016-09-28] MEDS ORDERED: guaiFENesin-Codeine 100-10mg/5ml Syrup (5 ml) UD PO PRN (00:11)
[2016-09-28] MEDS ORDERED: Albuterol 0.083% Inhal Sol (2.5 mg/3 mL) UD IH PRN (00:13)
[2016-09-28] MEDS ORDERED: Famotidine 20mg/50ml 50 ML IV SCH (00:15)
[2016-09-28] MEDS: MethylPREDNISolone 40 mg Vial IVP SCH ×2 (02:19→13:12)
[2016-09-28 06:33] LABS: ALB/GLOB RATIO 1.5 (1.1-1.8); ALKALINE PHOSPHATASE 107 U/L (38-133); ALT/SGPT 49 U/L (7-56); AST/SGOT 28 U/L (15-39); BILIRUBIN,TOTAL 0.3 mg/dL (0.2-1.3); BLOOD UREA NITROGEN 9 mg/dL (7-21); CALCIUM 9.3 mg/dL (8.4-10.5); CARBON DIOXIDE 17 mmol/L (21-33); CHLORIDE 106 mmol/L (95-110); CHOLESTEROL 244 mg/dL (130-200); GFR AFRICAN-AMERICAN > 60; GLUCOSE,RANDOM 193 mg/dL (70-110); POTASSIUM 4.3 mmol/L (3.6-5.0); SODIUM 137 mmol/L (132-148); TOTAL PROTEIN 7.8 g/dL (5.8-8.3)
--- NOTE | 2016-09-28 09:58 | CARD ---
APPROVED REPORT EKG Measurement Heart [id number] <Conclusion> Normal sinus rhythm Minimal voltage criteria for LVH, may be normal variant Borderline ECG
[2016-09-28] MEDS: Enoxaparin 40 mg Syringe SC SCH (09:59)
[2016-09-28] MEDS ORDERED: Amoxicillin-Clav 875-125 mg Tab PO SCH (10:00)
--- NOTE | 2016-09-28 10:13 | CARD ---
APPROVED REPORT EXAM: Two-dimensional and M-mode echocardiogram with Doppler and color Doppler. INDICATION Dyspnea 2D DIMENSIONS Left Atrium (2D)3.1 (1.6-4.0cm)IVSd0.9 (0.7-1.1cm) LVDd4.4 (3.9-5.9cm)PWd1.0 (0.7-1.1cm) LVDs2.6 (2.5-4.0cm)FS (%) 41.9 % LVEF (%)73.0 (>50%) M-Mode DIMENSIONS Aortic Root2.50 (2.2-3.7cm)Aortic Cusp Exc.1.80 (1.5-2.0cm) Aortic Valve AoV Peak Bpfldnka098.0cm/Marie Peak GR.7mmHg Mitral Valve E/A ratio0.0 TDI E/Lateral E'0.0E/Medial E'0.0 LEFT VENTRICLE The left ventricle is normal size. There is normal left ventricular wall thickness. The left ventricular function is normal.EF-65-70% There is normal LV segmental wall motion. The left ventricular diastolic function is normal. No left ventricle thrombus noted on this study. There is no ventricular septal defect visualized. There is no left ventricular aneurysm. There is no mass noted in the left ventricle. RIGHT VENTRICLE The right ventricle is normal size. There is normal right ventricular wall thickness. The right ventricular systolic function is normal. ATRIA The left atrium size is normal. The right atrium size is normal. The interatrial septum is intact with no evidence for an atrial septal defect. AORTIC VALVE The aortic valve is normal in structure. No aortic regurgitation is present. There is no aortic valvular stenosis. There is no aortic valvular vegetation. MITRAL VALVE The mitral valve is normal in structure. Mitral regurgitation is trace. There is no mitral valve stenosis. There is no evidence of mitral valve prolapse. TRICUSPID VALVE The tricuspid valve is normal in structure. There is trace tricuspid regurgitation. There is no tricuspid valve stenosis. There is no tricuspid valve prolapse or vegetation. PULMONIC VALVE The pulmonary valve is normal in structure. There is no pulmonic valvular regurgitation. There is no pulmonic valvular stenosis. GREAT VESSELS The aortic root is normal in size. The ascending aorta is normal in size. The pulmonary artery is normal. The IVC is normal in size and collapses >50% with inspiration. PERICARDIAL EFFUSION There is no pleural effusion. There is no pericardial effusion. <Conclusion> Normal Chamber Size. Ef-65-70% Trace MR/TR No Vegetation or thrombus noted No wall motion abnormality noted.
[2016-09-28] MEDS: cefTRIAXone 1 gm 1 GM/100 ML BAG IVPB SCH (11:10)
[2016-09-28] MEDS: Dextrose 5%/0.45% NS 1,000 ML IV SCH ×2 (11:10→23:44)
--- NOTE | 2016-09-28 11:53 | CT ---
PROCEDURE: CT NECK WITHOUT CONTRAST HISTORY: r/o laryngitis, hoarse voice, COMPARISON: 06/16/2016 TECHNIQUE: CT of the neck without intravenous contrast. Coronal and sagittal reformats generated. Radiation dose: DLP 403 mGy-cm This CT exam was performed using one or more of the following dose reduction techniques: Automated exposure control, adjustment of the mA and/or kV according to patient size, and/or use of iterative reconstruction technique. FINDINGS: NASOPHARYNX: Unremarkable. SUPRAHYOID NECK: Unremarkable oropharynx, oral cavity, parapharyngeal space and retropharyngeal space. INFRAHYOID NECK: Unremarkable larynx, hypopharynx, and supraglottic space. Vocal cords intact. MASS: None. GLANDS: Parotid and submandibular glands unremarkable. Normal size thyroid gland, without nodule. LYMPH NODES: Normal. No lymphadenopathy. CERVICAL SPINE: No fracture or focal lesion. OTHER FINDINGS: None. IMPRESSION: Unremarkable non-contrast enhanced CT of the neck.
[2016-09-28 17:12] VITALS: O2SAT 98
[2016-09-29] MEDS: MethylPREDNISolone 40 mg Vial IVP SCH ×2 (01:00→11:38)
[2016-09-29 07:37] LABS: ADD MANUAL DIFF? NO
[2016-09-29 07:46] LABS: BASO # 0.01 K/mm3 (0.0-2.0); BASO % 0.1 % (0.0-3.0); EOS % 0.1 % (1.5-5.0); GRAN # 10.67 (1.4-6.5); GRAN % 83.7 % (50.0-68.0); HEMATOCRIT 36.8 % (36.0-48.0); LYMPH # 1.6 (1.2-3.4); LYMPH % 12.6 % (22.0-35.0); MEAN CELL VOLUME 81.1 fL (80.0-105.0); MEAN CORPUSCULAR HEMOGLOBIN 27.1 pg (25.0-35.0); MEAN CORPUSCULAR HGB CONC 33.4 g/dl (31.0-37.0); MEAN PLATELET VOLUME 10.1 fl (7.0-11.0); MONO # 0.4 (0.1-0.6); MONO % 3.5 % (1.0-6.0); PLATELET COUNT 336 10^3/uL (120.0-450.0); RED CELL DISTRIBUTION WIDTH 13.4 % (11.5-14.5); WHITE BLOOD COUNT 12.7 10^3/ul (4.5-11.0)
[2016-09-29 08:04] LABS: ALB/GLOB RATIO 1.3 (1.1-1.8); ALKALINE PHOSPHATASE 101 U/L (38-133); ALT/SGPT 42 U/L (7-56); AST/SGOT 20 U/L (15-39); BILIRUBIN,TOTAL 0.5 mg/dL (0.2-1.3); BLOOD UREA NITROGEN 10 mg/dL (7-21); CALCIUM 9.1 mg/dL (8.4-10.5); CARBON DIOXIDE 21 mmol/L (21-33); CHLORIDE 104 mmol/L (98-107); GFR AFRICAN-AMERICAN > 60; GLUCOSE,RANDOM 183 mg/dL (70-110); POTASSIUM 4.4 mmol/L (3.6-5.0); SODIUM 136 mmol/L (132-148); TOTAL PROTEIN 7.6 g/dL (5.8-8.3)
[2016-09-29 09:15] VITALS: RESP 20
[2016-09-29] MEDS: Enoxaparin 40 mg Syringe SC SCH (10:12)
[2016-09-29] MEDS: cefTRIAXone 1 gm 1 GM/100 ML BAG IVPB SCH (10:12)
[2016-09-29] MEDS: Dextrose 5%/0.45% NS 1,000 ML IV SCH (11:38)
--- NOTE | 2016-09-29 12:12 | CP.PCM.PN ---
<Brodie Schumacher - Last Filed: 09/29/16 11:50> Subjective - Date & Time of Evaluation Date of Evaluation: 09/29/16 Time of Evaluation: 07:25 - Subjective Subjective: Medicine progress note: Pt seen and examined at bedside. No acute events overnight. Pt c/o odynyphagia but states that her voice and shortness of breath as much improved. Denies any arreaga, dizziness, f/c, cp, abd pain, n/v/d. Objective - Vital Signs/Intake and Output Vital Signs (last 24 hours): Temp Pulse Resp BP Pulse Ox 98.8 F 72 20 106/68 98 09/29/16 09:15 09/29/16 09:15 09/29/16 09:15 09/29/16 09:15 09/29/16 09:15 Intake and Output: 09/29/16 09/29/16 06:59 18:59 Intake Total 2660 Balance 2660 - Medications Medications: Current Medications Acetaminophen (Tylenol 325mg Tab) 650 mg PO Q6H PRN PRN Reason: Fever >100.4 F Albuterol Sulfate (Albuterol 0.083% Inhal Zulema (2.5 Mg/3 Ml) Ud) 2.5 mg IH Q2H PRN PRN Reason: Shortness of Breath Aspirin (Ecotrin) 81 mg PO DAILY [facility] Last Admin: 09/29/16 10:14 Dose: Not Given Atorvastatin Calcium (Lipitor) 40 mg PO DIN [facility] Last Admin: 09/28/16 17:25 Dose: 40 mg Benzonatate (Tessalon Perles) 100 mg PO TID [facility] Last Admin: 09/29/16 10:14 Dose: Not Given Enoxaparin Sodium (Lovenox) 40 mg SC DAILY [facility] PRN Reason: Protocol Last Admin: 09/29/16 10:12 Dose: 40 mg Famotidine (Pepcid) 20 mg IVP Q12 [facility] Last Admin: 09/29/16 10:12 Dose: 20 mg Guaifenesin/Codeine Phosphate (Robitussin W/Codeine) 5 ml PO Q4H PRN PRN Reason: Cough and congestion Dextrose/Sodium Chloride (Dextrose 5%/0.45% Ns 1000 Ml) 1,000 mls @ 80 mls/hr IV .[id number] [facility] Last Admin: 09/29/16 11:38 Dose: 80 mls/hr Ceftriaxone Sodium (Rocephin 1 Gram Ivpb) 1 gm in 100 mls @ 100 mls/hr IVPB DAILY [facility] PRN Reason: Protocol Last Admin: 09/29/16 10:12 Dose: 100 mls/hr Ibuprofen (Motrin Tab) 600 mg PO Q6H PRN PRN Reason: Pain, Mild (1-3) Lidocaine HCl (Lidocaine 2% Viscous) 15 ml MM Q3H PRN PRN Reason: Pain, moderate (4-7) Methylprednisolone (Solu-Medrol) 40 mg IVP Q12H [facility] Last Admin: 09/29/16 11:38 Dose: 40 mg Ondansetron HCl (Zofran Inj) 4 mg IVP Q6H PRN PRN Reason: Nausea/Vomiting Last Admin: 09/29/16 09:21 Dose: 4 mg - Labs Labs: 09/29/16 07:10 09/29/16 07:10 - Constitutional Appears: No Acute Distress - Head Exam Head Exam: ATRAUMATIC, NORMAL INSPECTION, NORMOCEPHALIC - Eye Exam Eye Exam: EOMI, Normal appearance, PERRL Pupil Exam: NORMAL ACCOMODATION, PERRL - ENT Exam ENT Exam: Mucous Membranes Moist, Normal Exam Additional comments: Tonsils enlarged - Respiratory Exam Respiratory Exam: Clear to Ausculation Bilateral, NORMAL BREATHING PATTERN. absent: Wheezes - Cardiovascular Exam Cardiovascular Exam: REGULAR RHYTHM, RRR, +S1, +S2. absent: Murmur - GI/Abdominal Exam GI & Abdominal Exam: Soft, Normal Bowel Sounds. absent: Tenderness - Extremities Exam Extremities Exam: Full ROM, Normal Capillary Refill, Normal Inspection. absent : Joint Swelling, Pedal Edema - Back Exam Back Exam: NORMAL INSPECTION - Neurological Exam Neurological Exam: Alert, Awake, CN II-XII Intact, Normal Gait, Oriented x3 - Psychiatric Exam Psychiatric exam: Normal Affect, Normal Mood - Skin Skin Exam: Dry, Intact, Normal Color, Warm Assessment and Plan - Assessment and Plan (Free Text) Assessment: 26yo F with pmh of NHL s/p CHOP in remission, [place] Palsy, Chronic Tonsillitis admitted for SOB/Chest Pain and Sinusitis vs Tonsilitis. 1. SOB/Chest pain - resolved - EKG showed NSR -CTA negative for PE, PNA, or dissection -PRN albuterol -Solumedrol 40mg Q12H -echo - normal EF, trace MR/TR -BNP - wnl 2. Odynophagia likely 2/2 enlarged tonsils vs sinusitis - Lidocaine mouth swish and spit PRN - CT soft tissue of neck was unremarkable - ENT consulted for recs -Cont abx - Rocephin -Solumedrol 40mg Q12H; can most likely be changed to PO prednisone 3. Previous TIA/Stroke -Aspirin 81mg PO daily -Lipitor 40mg HS 3. GI/DVT Proph Pepcid & Lovenox Case and plan was seen, reviewed and discussed with Dr Funez. <Dee Dee NAGEL,[facility] - Last Filed: 09/29/16 13:54> Objective - Vital Signs/Intake and Output Vital Signs (last 24 hours): Temp Pulse Resp BP Pulse Ox 98.8 F 72 20 106/68 98 09/29/16 09:15 09/29/16 09:15 09/29/16 09:15 09/29/16 09:15 09/29/16 09:15 Intake and Output: 09/29/16 09/29/16 06:59 18:59 Intake Total 2660 Balance 2660 - Medications Medications: Current Medications Acetaminophen (Tylenol 325mg Tab) 650 mg PO Q6H PRN PRN Reason: Fever >100.4 F Albuterol Sulfate (Albuterol 0.083% Inhal Zulema (2.5 Mg/3 Ml) Ud) 2.5 mg IH Q2H PRN PRN Reason: Shortness of Breath Aspirin (Ecotrin) 81 mg PO DAILY [facility] Last Admin: 09/29/16 10:14 Dose: Not Given Atorvastatin Calcium (Lipitor) 40 mg PO DIN [facility] Last Admin: 09/28/16 17:25 Dose: 40 mg Benzonatate (Tessalon Perles) 100 mg PO TID [facility] Last Admin: 09/29/16 13:31 Dose: Not Given Enoxaparin Sodium (Lovenox) 40 mg SC DAILY [facility] PRN Reason: Protocol Last Admin: 09/29/16 10:12 Dose: 40 mg Famotidine (Pepcid) 20 mg IVP Q12 [facility] Last Admin: 09/29/16 10:12 Dose: 20 mg Guaifenesin/Codeine Phosphate (Robitussin W/Codeine) 5 ml PO Q4H PRN PRN Reason: Cough and congestion Dextrose/Sodium Chloride (Dextrose 5%/0.45% Ns 1000 Ml) 1,000 mls @ 80 mls/hr IV .[id number] [facility] Last Admin: 09/29/16 11:38 Dose: 80 mls/hr Ceftriaxone Sodium (Rocephin 1 Gram Ivpb) 1 gm in 100 mls @ 100 mls/hr IVPB DAILY [facility] PRN Reason: Protocol Last Admin: 09/29/16 10:12 Dose: 100 mls/hr Ibuprofen (Motrin Tab) 600 mg PO Q6H PRN PRN Reason: Pain, Mild (1-3) Lidocaine HCl (Lidocaine 2% Viscous) 15 ml MM Q3H PRN PRN Reason: Pain, moderate (4-7) Ondansetron HCl (Zofran Inj) 4 mg IVP Q6H PRN PRN Reason: Nausea/Vomiting Last Admin: 09/29/16 09:21 Dose: 4 mg Prednisone (Prednisone Tab) 40 mg PO DAILY [facility] - Labs Labs: 09/29/16 07:10 09/29/16 07:10 Attending/Attestation - Attestation I have personally seen and examined this patient.: Yes I have fully participated in the care of the patient.: Yes I have reviewed all pertinent clinical information, including history, physical exam and plan: Yes Notes (Text): 09/29/16 13:52 Patient was seen and examined with medical delivery technician .Agreed with resident assessment and plan. Patient is c/o odynophagia, cough , dyspnea and hoarseness is improving.Oral cavity examination showed enlarged tonsils but air way is patent, no sign of Resp Distress.We will get ENT evaluation.Patient can be discharged home if no plan for intervention . Management plan was discussed in detail with patient Education was provided.
[2016-09-30 07:19] LABS: ADD MANUAL DIFF? NO
[2016-09-30 07:22] LABS: BASO # 0.01 K/mm3 (0.0-2.0); BASO % 0.1 % (0.0-3.0); EOS % 0.2 % (1.5-5.0); GRAN # 8.79 (1.4-6.5); GRAN % 64.8 % (50.0-68.0); HEMATOCRIT 36.4 % (36.0-48.0); LYMPH # 3.6 (1.2-3.4); LYMPH % 26.7 % (22.0-35.0); MEAN CORPUSCULAR HGB CONC 33.8 g/dl (31.0-37.0); MEAN PLATELET VOLUME 10.1 fl (7.0-11.0); MONO # 1.1 (0.1-0.6); MONO % 8.2 % (1.0-6.0); PLATELET COUNT 333 10^3/uL (120.0-450.0); RED CELL DISTRIBUTION WIDTH 13.1 % (11.5-14.5); WHITE BLOOD COUNT 13.6 10^3/ul (4.5-11.0)
[2016-09-30 07:50] LABS: ALB/GLOB RATIO 1.4 (1.1-1.8); ALKALINE PHOSPHATASE 87 U/L (38-133); ALT/SGPT 34 U/L (7-56); AST/SGOT 15 U/L (15-39); BILIRUBIN,TOTAL 0.4 mg/dL (0.2-1.3); BLOOD UREA NITROGEN 11 mg/dL (7-21); CALCIUM 8.7 mg/dL (8.4-10.5); CARBON DIOXIDE 25 mmol/L (21-33); CHLORIDE 101 mmol/L (95-110); GFR AFRICAN-AMERICAN > 60; GLUCOSE,RANDOM 126 mg/dL (70-110); POTASSIUM 3.6 mmol/L (3.6-5.0); SODIUM 136 mmol/L (132-148); TOTAL PROTEIN 6.7 g/dL (5.8-8.3)
[2016-09-30 08:55] VITALS: BP 105/70; PULSE 66; TEMP 98.6
[2016-09-30] MEDS: cefTRIAXone 1 gm 1 GM/100 ML BAG IVPB SCH (09:16)
[2016-09-30] MEDS: Enoxaparin 40 mg Syringe SC SCH (09:17)
--- NOTE | 2016-09-30 14:55 | CP.PCM.DIS ---
<Brodie Schumacher - Last Filed: 09/30/16 14:46> Provider - Provider Date of Admission: 09/27/16 22:08 Attending physician: Luciana Funez MD Primary care physician: NO PRIMARY CARE PROVIDER Consults: ENT Time Spent in preparation of Discharge (in minutes): 45 Hospital Course - Lab Results Lab Results: Micro Results 09/28/16 02:40 Blood-Venous Blood Culture - Preliminary NO GROWTH AFTER 48 HOURS Most Recent Lab Values WBC 13.6 10^3/ul (4.5-11.0) H 09/30/16 06:40 RBC 4.55 10^6/uL (3.5-6.1) 09/30/16 06:40 Hgb 12.3 gm/dL (12.0-16.0) 09/30/16 06:40 Hct 36.4 % (36.0-48.0) 09/30/16 06:40 MCV 80.0 fL (80.0-105.0) 09/30/16 06:40 MCH 27.0 pg (25.0-35.0) 09/30/16 06:40 MCHC 33.8 g/dl (31.0-37.0) 09/30/16 06:40 RDW 13.1 % (11.5-14.5) 09/30/16 06:40 Plt Count 333 10^3/uL (120.0-450.0) 09/30/16 06:40 MPV 10.1 fl (7.0-11.0) 09/30/16 06:40 Gran % 64.8 % (50.0-68.0) 09/30/16 06:40 Lymph % (Auto) 26.7 % (22.0-35.0) 09/30/16 06:40 [place] % (Auto) 8.2 % (1.0-6.0) H 09/30/16 06:40 Eos % (Auto) 0.2 % (1.5-5.0) L 09/30/16 06:40 Baso % (Auto) 0.1 % (0.0-3.0) 09/30/16 06:40 Gran # 8.79 (1.4-6.5) H 09/30/16 06:40 Lymph # 3.6 (1.2-3.4) H 09/30/16 06:40 Acad[place] # 1.1 (0.1-0.6) H 09/30/16 06:40 Eos # 0.0 (0.0-0.7) 09/30/16 06:40 Baso # 0.01 K/mm3 (0.0-2.0) 09/30/16 06:40 D-Dimer, Quantitative 0.72 mg/L FEU (0-0.50) H 09/27/16 17:22 Sodium 136 mmol/L (132-148) 09/30/16 06:40 Potassium 3.6 mmol/L (3.6-5.0) 09/30/16 06:40 Chloride 101 mmol/L (95-110) 09/30/16 06:40 Carbon Dioxide 25 mmol/L (21-33) 09/30/16 06:40 Anion Gap 14 (10-20) 09/30/16 06:40 BUN 11 mg/dL (7-21) 09/30/16 06:40 Creatinine 0.5 mg/dL (0.5-1.4) 09/30/16 06:40 Est GFR ( Amer) > 60 09/30/16 06:40 Est GFR (Non-Af Amer) > 60 09/30/16 06:40 Random Glucose 126 mg/dL (70-110) H 09/30/16 06:40 Calcium 8.7 mg/dL (8.4-10.5) 09/30/16 06:40 Total Bilirubin 0.4 mg/dL (0.2-1.3) 09/30/16 06:40 AST 15 U/L (15-39) 09/30/16 06:40 ALT 34 U/L (7-56) 09/30/16 06:40 Alkaline Phosphatase 87 U/L (38-133) 09/30/16 06:40 NT-Pro-B Natriuret Pep 81.8 pg/mL (0-450) 09/28/16 02:40 Total Protein 6.7 g/dL (5.8-8.3) 09/30/16 06:40 Albumin 3.9 g/dL (3.0-4.8) 09/30/16 06:40 Globulin 2.8 gm/dL 09/30/16 06:40 Albumin/Globulin Ratio 1.4 (1.1-1.8) 09/30/16 06:40 Triglycerides 102 mg/dL (35-160) 09/28/16 06:00 Cholesterol 244 mg/dL (130-200) H 09/28/16 06:00 LDL Cholesterol Direct 180 mg/dL (0-129) H 09/28/16 06:00 HDL Cholesterol 44 mg/dL (29-60) 09/28/16 06:00 - Hospital Course Hospital Course: 26yo non-hodgkin lymphoma s/p treatment with CHOP (cyclophosphamide, doxorubicin , vincristine, and prednisone) in remission/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 In the ED basic lab work was done. EKG showed NSR. CTA negative for PE, PNA, or dissection. Antibiotics and steroids were started and pt was sent to the floor for closer observation. Echo was ordered and showed normal EF, trace MR/TR. Pt was started on IV abx Rocephin. Pt started to c/o odynophagia. ENT consult and swallow eval was done. As per nurses ENT stated that pt can go home with oral antibiotics. Swallow eval recommended soft regular consistency diet as tolerated, with thin liquids. Pt refused to downgrade her diet. Pt verbalized understanding to risk of continuing her diet. Today pt is doing much better. Pt states that her odynophagia has since improved. Denies any sob, or coughing. Denies any arreaga, dizzines, f/c, n/v/d, abd pain. Discharge Exam - Head Exam Head Exam: ATRAUMATIC, NORMAL INSPECTION, NORMOCEPHALIC - Eye Exam Eye Exam: EOMI, Normal appearance - ENT Exam ENT Exam: Mucous Membranes Moist Additional comments: Enlarged tonsils - Respiratory Exam Respiratory Exam: Clear to PA & Lateral. absent: Wheezes - Cardiovascular Exam Cardiovascular Exam: REGULAR RHYTHM, RRR, +S1, +S2 - GI/Abdominal Exam GI & Abdominal Exam: Normal Bowel Sounds, Soft. absent: Tenderness - Neurological Exam Neurological exam: Alert, CN II-XII Intact, Normal Gait, Oriented x3, Reflexes Normal - Psychiatric Exam Psychiatric exam: Normal Affect, Normal Mood - Skin Skin Exam: Dry, Intact, Normal Color, Warm Discharge Plan - Discharge Medications Prescriptions: Amoxicillin/Clavulanate [Augmentin 875 MG-125 MG] 1 tab PO BID #14 tab Aspirin [Aspirin Chewable] 81 mg PO DAILY #30 ctb Atorvastatin [Lipitor] 40 mg PO DIN #30 tab Lidocaine 2% Viscous 2 ml MM Q4H PRN #1 udc PRN Reason: Pain, Moderate (4-7) - Follow Up Plan Condition: STABLE Disposition: HOME/ ROUTINE Instructions: Chest Pain (DC), Chest Pain (GEN), Tonsillitis (DC), Dyspnea (GEN ) Additional Instructions: Recommend a soft consistency diet for next few days and than advance as tolerated. Follow up with your PMD with in 2-3 days. If your symptoms worsen come back to the closest ED. Take your medication as prescribed. Follow up with ENT in next 1-2 weeks. Referrals: PCP,NO [Primary Care Provider] - <Luciana Funez MD - Last Filed: 09/30/16 15:06> Provider - Provider Date of Admission: 09/27/16 22:08 Attending physician: Luciana Funez MD Primary care physician: CELINA PRIMARY CARE PROVIDER Hospital Course - Lab Results Lab Results: Micro Results 09/28/16 02:40 Blood-Venous Blood Culture - Preliminary NO GROWTH AFTER 48 HOURS Most Recent Lab Values WBC 13.6 10^3/ul (4.5-11.0) H 09/30/16 06:40 RBC 4.55 10^6/uL (3.5-6.1) 09/30/16 06:40 Hgb 12.3 gm/dL (12.0-16.0) 09/30/16 06:40 Hct 36.4 % (36.0-48.0) 09/30/16 06:40 MCV 80.0 fL (80.0-105.0) 09/30/16 06:40 MCH 27.0 pg (25.0-35.0) 09/30/16 06:40 MCHC 33.8 g/dl (31.0-37.0) 09/30/16 06:40 RDW 13.1 % (11.5-14.5) 09/30/16 06:40 Plt Count 333 10^3/uL (120.0-450.0) 09/30/16 06:40 MPV 10.1 fl (7.0-11.0) 09/30/16 06:40 Gran % 64.8 % (50.0-68.0) 09/30/16 06:40 Lymph % (Auto) 26.7 % (22.0-35.0) 09/30/16 06:40 [place] % (Auto) 8.2 % (1.0-6.0) H 09/30/16 06:40 Eos % (Auto) 0.2 % (1.5-5.0) L 09/30/16 06:40 Baso % (Auto) 0.1 % (0.0-3.0) 09/30/16 06:40 Gran # 8.79 (1.4-6.5) H 09/30/16 06:40 Lymph # 3.6 (1.2-3.4) H 09/30/16 06:40 [place] # 1.1 (0.1-0.6) H 09/30/16 06:40 Eos # 0.0 (0.0-0.7) 09/30/16 06:40 Baso # 0.01 K/mm3 (0.0-2.0) 09/30/16 06:40 D-Dimer, Quantitative 0.72 mg/L FEU (0-0.50) H 09/27/16 17:22 Sodium 136 mmol/L (132-148) 09/30/16 06:40 Potassium 3.6 mmol/L (3.6-5.0) 09/30/16 06:40 Chloride 101 mmol/L (95-110) 09/30/16 06:40 Carbon Dioxide 25 mmol/L (21-33) 09/30/16 06:40 Anion Gap 14 (10-20) 09/30/16 06:40 BUN 11 mg/dL (7-21) 09/30/16 06:40 Creatinine 0.5 mg/dL (0.5-1.4) 09/30/16 06:40 Est GFR ( Amer) > 60 09/30/16 06:40 Est GFR (Non-Af Amer) > 60 09/30/16 06:40 Random Glucose 126 mg/dL (70-110) H 09/30/16 06:40 Calcium 8.7 mg/dL (8.4-10.5) 09/30/16 06:40 Total Bilirubin 0.4 mg/dL (0.2-1.3) 09/30/16 06:40 AST 15 U/L (15-39) 09/30/16 06:40 ALT 34 U/L (7-56) 09/30/16 06:40 Alkaline Phosphatase 87 U/L (38-133) 09/30/16 06:40 NT-Pro-B Natriuret Pep 81.8 pg/mL (0-450) 09/28/16 02:40 Total Protein 6.7 g/dL (5.8-8.3) 09/30/16 06:40 Albumin 3.9 g/dL (3.0-4.8) 09/30/16 06:40 Globulin 2.8 gm/dL 09/30/16 06:40 Albumin/Globulin Ratio 1.4 (1.1-1.8) 09/30/16 06:40 Triglycerides 102 mg/dL (35-160) 09/28/16 06:00 Cholesterol 244 mg/dL (130-200) H 09/28/16 06:00 LDL Cholesterol Direct 180 mg/dL (0-129) H 09/28/16 06:00 HDL Cholesterol 44 mg/dL (29-60) 09/28/16 06:00 Attending/Attestation - Attestation I have personally seen and examined this patient.: Yes I have fully participated in the care of the patient.: Yes I have reviewed all pertinent clinical information, including history, physical exam and plan: Yes Notes (Text): 09/30/16 15:02 Patient was seen and examined with medical policy specialist .Agreed with resident assessment and plan. 26 F with PMH of Obesity, Non Hodgkin Lymphoma, SP CHOP, in remission was admitted with cough/dyspnea and hoarseness, CT scan of soft tissue neck was negative for acute pathology.Patient was treated with IV antibiotics, Hoarseness of voice, cough and dyspnea has improved.Odynophagia has improved.She is afebrile, tolerating soft diet, will be discharged home and will follow up with PCP and ENT. Management plan was discussed in detail with patient Education was provided.
== END 2016-09-30 16:48 | disposition home or self-care (01) ==
LOC: ED 15:57 → ERH 22:08 → 2RSO 09-28 00:52 → 3RSO 09-28 13:24
PROVIDERS: ADMIT Internal Medicine; ATTEND Internal Medicine
DX: R06.02 Shortness of breath (principal); R07.89 Other chest pain; R53.1 Weakness; R05 Cough; G51.0 Bell's palsy; R49.0 Dysphonia; R13.10 Dysphagia, unspecified; E66.9 Obesity, unspecified; Z68.30 Body mass index [BMI] 30.0-30.9, adult; Z85.72 Personal history of non-Hodgkin lymphomas
CPT/HCPCS: 36415; 70490; 71275; 80053; 80061; 83880; 85025; 85378; 87040; 92610; 93005; 93306; 96374; 99285; G0378; G8996; G8997; G8998; J0696; J1650; J1885; J2405; J2920; J2930; J3475; J7042; Q9967

== ENCOUNTER 2016-11-11 10:24 | Emergency (ER) | payer OTHER ==
[2016-11-11 10:35] VITALS: TEMP 99.6; O2SAT 100
--- NOTE | 2016-11-11 11:01 | ED PDOC ---
Arrival/HPI - General Chief Complaint: ENT Problem Time Seen by Provider: 11/11/16 10:28 Historian: Patient - History of Present Illness Narrative History of Present Illness (Text): 11/11/16 10:58 This 26 y/o female, pmh including non-hodgkin lymphoma/bells palsy with chronic lt. facial droop/chronic left leg weakness, nkda, c/o sore throat, dysphagia, and fever x 2 days. Patient stated she is breathing normal. Denies CP, or hemoptysis, wheezing, sob, rash, tongue swelling, or dizziness. 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 Time/Duration: Other (2 days) Context: Home Past Medical History - Provider Review Nursing Documentation Reviewed: Yes - Past History Past History: Non-Contributing - Infectious Disease Hx of Infectious Diseases: None - Tetanus Immunization Tetanus Immunization: Unknown - Cardiac Hx Cardiac Disorders: No - Pulmonary Hx Respiratory Disorders: No - Neurological Hx Neurological Disorder: No - HEENT Hx HEENT Disorder: No - Renal Hx Renal Disorder: No - Endocrine/Metabolic Hx Endocrine Disorders: No - Hematological/Oncological Hx Blood Disorders: Yes Hx Cancer: Yes (non hodgkin's lymphoma) - Integumentary Hx Dermatological Disorder: No - Musculoskeletal/Rheumatological Hx Musculoskeletal Disorders: No - Gastrointestinal Hx Gastrointestinal Disorders: No - Genitourinary/Gynecological Hx Genitourinary Disorders: Yes Other/Comment: lymphoma 2013, hx chemo - Psychiatric Hx Psychophysiologic Disorder: No Hx Anxiety: No Hx Bipolar Disorder: No Hx Depression: No Hx Emotional Abuse: No Hx Hallucinations: No Hx Panic Disorder: No Hx Post Traumatic Stress Disorder: No Hx Psychosis: No Hx Physical Abuse: No Hx Schizophrenia: No Hx Sexual Abuse: No Hx Substance Use: No - Surgical History Hx Section: Yes (x2) Other/Comment: lymphoma left neck - Anesthesia Hx Anesthesia: Yes Hx Anesthesia Reactions: No Hx Malignant Hyperthermia: No - Suicidal Assessment Feels Threatened In Home Enviroment: No Family/Social History - Physician Review Nursing Documentation Reviewed: Yes Family/Social History: No Known Family HX Smoking Status: Never Smoked Hx Alcohol Use: No Hx Substance Use: No Allergies/Home Meds Allergies/Adverse Reactions: Allergies No Known Allergies Allergy (Verified 09/27/16 16:07) Review of Systems - Review of Systems Constitutional: Fevers. absent: Fatigue, Weight Change, Night Sweats Eyes: Normal ENT: Sore Throat, Other (difficult swallowing) Respiratory: Normal. absent: SOB, Cough Cardiovascular: Normal. absent: Palpitations, Edema Gastrointestinal: Normal. absent: Abdominal Pain, Nausea, Vomiting Genitourinary Female: Normal. absent: Dysuria, Frequency Musculoskeletal: Normal Skin: Normal Neurological: Normal Endocrine: Normal Hemo/Lymphatic: Normal Psychiatric: Normal Physical Exam Vital Signs Temp Pulse Resp BP Pulse Ox 11/11/16 10:34 99.6 F 94 H 16 129/88 100 Temperature: Afebrile Blood Pressure: Normal Pulse: Regular Respiratory Rate: Normal Appearance: Positive for: Well-Appearing, Non-Toxic, Comfortable Pain Distress: None Mental Status: Positive for: Alert and Oriented X 3 - Systems Exam Head: Present: Atraumatic, Normocephalic Pupils: Present: PERRL Extroacular Muscles: Present: EOMI Conjunctiva: Present: Normal Mouth: Present: Moist Mucous Membranes Neck: Present: Normal Range of Motion Respiratory/Chest: Present: Clear to Auscultation, Good Air Exchange. No: Respiratory Distress, Accessory Muscle Use Cardiovascular: Present: Regular Rate and Rhythm, Normal S1, S2. No: Murmurs Abdomen: Present: Normal Bowel Sounds. No: Tenderness, Distention, Peritoneal Signs Back: Present: Normal Inspection Upper Extremity: Present: Normal Inspection. No: Cyanosis, Edema Lower Extremity: Present: Normal Inspection. No: Edema Neurological: Present: GCS=15, CN II-XII Intact, Speech Normal Skin: Present: Warm, Dry, Normal Color. No: Rashes Psychiatric: Present: Alert, Oriented x 3, Normal Insight, Normal Concentration , Anxious (mild). No: Suicidal Ideation, Homicidal Ideation, Delusional, Hallucinations, Intoxicated, Lethargic Medical Decision Making ED Course and Treatment: 11/11/16 12:15 Re-evaluation. Patient feels better. Discussed results and plan with patient who expresses understanding. All questions answered and there is agreement with the plan to discharge home with instructions. Patient stable for discharge. Return if symptoms persist or worsen. Patient stated her symptoms have improved after Solumedrol IVP. Patient was recommended to f/u ENT. Patient stated she sees a doctor at [facility] in [place], and she is going to find an ENT. Patient feels in her normal state of health, and she was recommended to return to ED if symptoms worsen. Patient noted she gets muscle spasm at times, and she is requesting medication for this. I reviewed side effect by taking steroid medication such as Solumedrol, Prednisone to ciet a few. SE includes AVN, glaucoma, DM, osteoporosis, liver or kidney problems. She understood risk, and she agrees with medical plan. Re-evaluation Time: 12:18 Reassessment Condition: Re-examined, Improved - Lab Interpretations Lab Results: 11/11/16 11:40 11/11/16 11:40 Lab Results 11/11/16 11:40: Grp A Beta Strep Ag Negative 11/11/16 11:40: pO2 108 H, VBG pH 7.37, VBG pCO2 46.0, VBG HCO3 26.6, VBG Total CO2 28.0, VBG O2 Sat (Calc) 99.2 H, VBG Base Excess 0.8, VBG Potassium 3.8, Sodium 140.0, Chloride 107.0, Glucose 154 H, Lactate 1.8, FiO2 21.0, Venous Blood Potassium 3.8 11/11/16 11:40: Sodium 140, Chloride 105, Potassium 3.7, Carbon Dioxide 23, Anion Gap 16, BUN 10, Creatinine 0.5, Est GFR ( Amer) > 60, Est GFR (Non- Af Amer) > 60, Random Glucose 143 H, Calcium 9.4, Total Bilirubin 0.4, AST 30, ALT 53, Alkaline Phosphatase 102, Total Protein 7.3, Albumin 4.4, Globulin 2.9, Albumin/Globulin Ratio 1.5 11/11/16 11:40: WBC 8.1 D, RBC 4.37, Hgb 12.1, Hct 35.3 L, MCV 80.8, MCH 27.7, MCHC 34.3, RDW 12.9, Plt Count 294, MPV 10.1, Gran % 67.5, Lymph % (Auto) 25.4, Martin % (Auto) 5.3, Eos % (Auto) 1.6, Baso % (Auto) 0.2, Gran # 5.44, Lymph # 2.1 , Martin # 0.4, Eos # 0.1, Baso # 0.02 I have reviewed the lab results: Yes Interpretation: No clinic. lab abnormalty - Medication Orders Current Medication Orders: Discontinued Medications Sodium Chloride (Sodium Chloride 0.9%) 1,000 mls @ 999 mls/hr IV .Q1H1M STA Stop: 11/11/16 12:08 Last Admin: 11/11/16 11:37 Dose: 999 mls/hr Methylprednisolone (Solu-Medrol) 125 mg IM STAT STA Stop: 11/11/16 11:04 Last Admin: 11/11/16 11:38 Dose: 125 mg Disposition/Present on Arrival - Present on Arrival Any Indicators Present on Arrival: No History of DVT/PE: No History of Uncontrolled Diabetes: No Urinary Catheter: No History of Decub. Ulcer: No History Surgical Site Infection Following: None - Disposition Have Diagnosis and Disposition been Completed?: Yes Diagnosis: Sore throat, Muscle spasm, Environmental allergies Disposition: HOME/ ROUTINE Disposition Time: 12:19 Patient Plan: Discharge Patient Problems: Current Active Problems Problem Status Onset Muscle spasm Acute Sore throat Acute Condition: GOOD Discharge Instructions (ExitCare): Pharyngitis (ED) Additional Instructions: Call Dr. Tavares ENT for follow up visit in 1-2 days. Also call [facility] clinic for revaluation. Take medication as instructed. Return to emergency if symptoms worsen. Take Zyrtec for allergies for 10 days. Prescriptions: Amoxicillin/Clavulanate [Augmentin 875 MG-125 MG] 1 tab PO BID #20 tab Diazepam [Valium] 2 mg PO DAILY #7 tablet Famotidine [Pepcid] 40 mg PO DAILY #10 tablet Prednisone [Deltasone] 60 mg PO DAILY #9 tablet Forms: [employer] ([place])
[2016-11-11] MEDS ORDERED: Sodium Chloride 0.9% 1,000 ML IV STA (11:08)
[2016-11-11 11:54] LABS: BASO # 0.02 K/mm3 (0.0-2.0); BASO % 0.2 % (0.0-3.0); EOS # 0.1 (0.0-0.7); EOS % 1.6 % (1.5-5.0); GRAN # 5.44 (1.4-6.5); GRAN % 67.5 % (50.0-68.0); HEMOGLOBIN 12.1 g/dL (12.0-16.0); LYMPH # 2.1 (1.2-3.4); LYMPH % 25.4 % (22.0-35.0); MEAN CELL VOLUME 80.8 fl (80.0-105.0); MEAN CORPUSCULAR HEMOGLOBIN 27.7 pg (25.0-35.0); MEAN CORPUSCULAR HGB CONC 34.3 g/dl (31.0-37.0); MEAN PLATELET VOLUME 10.1 fl (7.0-11.0); MONO # 0.4 (0.1-0.6); MONO % 5.3 % (1.0-6.0); PLATELET COUNT 294 10^3/uL (120.0-450.0); RBC 4.37 10^6/uL (3.5-6.1); RED CELL DISTRIBUTION WIDTH 12.9 % (11.5-14.5); VENOUS BLOOD GAS BASE EXCESS 0.8 mmol/L (0.0-2.0); VENOUS BLOOD GAS PO2 108 mm/Hg (30-55); VENOUS BLOOD PH 7.37 (7.32-7.43); WHITE BLOOD COUNT 8.1 10^3/ul (4.5-11.0)
[2016-11-11 12:08] LABS: ALB/GLOB RATIO 1.5 (1.1-1.8); ALBUMIN 4.4 g/dL (3.0-4.8); ALT/SGPT 53 U/L (7-56); AST/SGOT 30 U/L (15-39); BLOOD UREA NITROGEN 10 mg/dL (7-21); CALCIUM 9.4 mg/dL (8.4-10.5); GFR AFRICAN-AMERICAN > 60; GFR NON-AFRICAN AMERICAN > 60
[2016-11-11 13:26] VITALS: BP 127/82; PULSE 90; RESP 17
== END 2016-11-11 13:26 | disposition home or self-care (01) ==
LOC: ED 10:24
DX: J02.9 Acute pharyngitis, unspecified (principal); M62.838 Other muscle spasm; T78.49XA Other allergy, initial encounter; X58.XXXA Exposure to other specified factors, initial encounter
CPT/HCPCS: 80053; 82803; 85025; 87070; 87430; 96360; 96372; 99284; J2930; J7040